=== PATIENT | female | born 1940 | race Caucasian/White ===

== ENCOUNTER 2019-03-17 21:46 | Emergency (ER) | payer OTHER ==
[~2019-03-17] VITALS: Ht 172.7 cm; Wt 68.0 kg
[2019-03-17 21:46] VITALS: BP 145/64
--- NOTE | 2019-03-17 21:46 | NUR ---
PT LUCHO[facility] BLS TO ER BED 09
[2019-03-17] MEDS ORDERED: NACL 0.9% 1,000 ML IV ONE (21:56)
[2019-03-17] MEDS ORDERED: ONDANSETRON 4 MG/2 ML VIAL IVP ONE (22:00)
--- NOTE | 2019-03-17 22:16 | NUR ---
PT BIBA C/O GENERALIZED WEAKNESS, DIZZNIESS, AND SHAKINESS X 1HR AND HALF AGO. RATES PAIN 1/10. ABD IS SOFT, FLAT, NONTENDER. PT STATES SHE HAS A COLONSCOPY TOMORROW AT 8AM. PT BEEN TAKING BOWEL PREP CLEANSER AND ON A CLEAR LIQUID DIET X 2DAYS. DENIES ANY BLOOD IN STOOL. VSS. DENIES ANY N,V. PT SATETS HE RSTOOL HAS BEEN MENJIVAR LIQUID CONSITENCY AND COLOR. ALLERGIES: NEOMYCIN AND LATEX. PMH: ARTHRITIS, GLUCOMA, HYPOTHYROID.
--- NOTE | 2019-03-17 22:32 | NUR ---
AT BEDSIDE TO [facility]
[2019-03-17 22:43] LABS: BASOPHILS % (AUTO) 0.5 % (0.0-2.0); EOSINOPHILS % (AUTO) 0.7 % (0.0-4.0); HEMOGLOBIN 13.4 g/dL (12.0-16.0); LYMPHOCYTES # (AUTO) 1.1 K/uL (2.5-16.5); LYMPHOCYTES % (AUTO) 16.6 % (20.5-51.1); MEAN CORPUSCULAR HEMOGLOBIN 32 pg (27-31); MEAN CORPUSCULAR HGB CONC 33 g/dL (33-37); MEAN CORPUSCULAR VOLUME 98.6 fL (80-94); MONOCYTES # (AUTO) 0.6 K/uL (0.8-1.0); MONOCYTES % (AUTO) 8.8 % (1.7-9.3); NEUTROPHILS % (AUTO) 73.4 % (42.2-75.2); PLATELET COUNT (AUTO) 186 K/uL (140-450); RED BLOOD CELL COUNT(AUTO) 4.16 MIL/uL (4.20-5.40); WHITE BLOOD COUNT (AUTO) 6.8 K/uL (4.8-10.8)
[2019-03-17 23:13] LABS: ANION GAP 16.6 (8-16); CARBON DIOXIDE 24.8 mmol/L (21-32); CHLORIDE 103 mmol/L (98-107); CREATININE 0.9 mg/dL (0.6-1.3); GLUCOSE 131 mg/dL (74-106); POTASSIUM 4.4 mmol/L (3.5-5.1); SODIUM SERUM 140 mmol/L (136-145); UREA NITROGEN, BLOOD 12 mg/dL (7-18)
[2019-03-17 23:42] LABS: ASPARTATE AMINOTRANSFERASE 15 U/L (15-37); TOTAL BILIRUBIN 1.3 mg/dL (0.0-1.0)
[2019-03-17 23:43] LABS: ALBUMIN 3.8 g/dL (3.4-5.0); LIPASE 104 U/L (73-393); PHOSPHORUS 2.2 mg/dL (2.5-4.9)
--- NOTE | 2019-03-18 00:06 | NUR ---
Patient discharged with v/s stable. Written and verbal after care instructions given and explained. Patient verbalized understanding. Ambulatory with steady gait. All questions addressed prior to discharge. Advised to follow up with PMD.
[2019-03-18 00:07] VITALS: BP 127/63
== END 2019-03-18 00:06 | disposition home or self-care (01) ==
LOC: MED 21:46
DX: R42 Dizziness and giddiness (principal); E11.9 Type 2 diabetes mellitus without complications; Z98.890 Other specified postprocedural states; Z88.1 Allergy status to other antibiotic agents; Z91.040 Latex allergy status
CPT/HCPCS: 36415; 80053; 82948; 83690; 83735; 84100; 85025; 96361; 96374; 99283; J2405